=== PATIENT | male | born 1985 | race American Indian/Alaskan Native ===

== ENCOUNTER 2016-11-08 03:06 | Emergency (ER) | payer SELFPAY ==
[2016-11-08] MEDS ORDERED: MOTRIN ONE (03:20)
[2016-11-08] MEDS ORDERED: MOTRIN PO ONE (03:22)
--- NOTE | 2016-11-08 03:50 | XRay Report ---
FINAL REPORT EXAM: XR SHOULDER 2 RT HISTORY: pain.....RIGHT SHOULDER PAIN. TECHNIQUE: 2 views of right shoulder. PRIORS: None. FINDINGS: Joint spaces maintained. No apparent fracture or dislocation. Soft tissues grossly unremarkable. IMPRESSION: 1. No acute osseous abnormality.
--- NOTE | 2016-11-08 07:16 | Emergency Department Report ---
ED Upper Extremity Inj HPI - General Chief Complaint: Shoulder Injury Stated Complaint: R SHOULDER PAIN Time Seen by Provider: 11/08/16 07:07 Source: family Mode of arrival: Ambulatory Limitations: No Limitations - History of Present Illness Initial Comments: This is a 32-year-old male well-nourished with nontoxic or ill in appearance but complains of right shoulder pain status post lifting a dresser this Wednesday. 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 He stated that after lifting a dresser when he came home yesterday feeling of right shoulder pain that describes as aching. Patient denies numbness, tingling, fever, chills, joint swelling, joint redness, weakness, trauma, point tenderness, chest pain, shortness of breath, nausea or vomiting. Patient denies decreased ROM. Patient denies any allergies. No significant past medical history. MD Complaint: Injury to:: right, shoulder -: Gradual, days(s) (3) Other Injuries: none Place: work Severity scale (0 -10): 6 Improves With: other (relieved by NSAIDs) Worsens With: none Associated Symptoms: denies other symptoms. denies: weakness, numbness, neck pain, suspects foreign body, nausea/vomiting, heard/felt popping sensat - Related Data Previous Rx's Medication Instructions Recorded Last Taken Type Ibuprofen [Motrin] 800 mg PO Q8HR PRN #15 tablet 06/20/16 Unknown Rx Ibuprofen [Motrin 600 MG tab] 600 mg PO Q8H PRN #20 tablet 11/08/16 Unknown Rx predniSONE [Deltasone] 20 mg PO BID #10 tab 11/08/16 Unknown Rx Allergies Allergy/AdvReac Type Severity Reaction Status Date / Time No Known Allergies Allergy Verified 06/20/16 06:22 ED Review of Systems ROS: Stated complaint: R SHOULDER PAIN Other details as noted in HPI Constitutional: denies: chills, fever Eyes: denies: eye pain, eye discharge, vision change ENT: denies: ear pain, throat pain Respiratory: denies: cough, shortness of breath, wheezing Cardiovascular: denies: chest pain, palpitations Endocrine: no symptoms reported Gastrointestinal: denies: abdominal pain, nausea, diarrhea Genitourinary: denies: urgency, dysuria Musculoskeletal: denies: back pain, joint swelling, arthralgia Skin: denies: rash, lesions Neurological: denies: headache, weakness, paresthesias Psychiatric: denies: anxiety, depression Hematological/Lymphatic: denies: easy bleeding, easy bruising ED Past Medical Hx - Past Medical History Previous Medical History?: No - Surgical History Past Surgical History?: No - Social History Smoking Status: Never Smoker Substance Use Type: None - Medications Home Medications: Home Medications Medication Instructions Recorded Confirmed Last Taken Type Ibuprofen [Motrin] 800 mg PO Q8HR PRN #15 tablet 06/20/16 Unknown Rx Ibuprofen [Motrin 600 MG tab] 600 mg PO Q8H PRN #20 tablet 11/08/16 Unknown Rx predniSONE [Deltasone] 20 mg PO BID #10 tab 11/08/16 Unknown Rx ED Physical Exam - General Limitations: No Limitations General appearance: alert, in no apparent distress - Head Head exam: Present: atraumatic, normocephalic, normal inspection - Eye Eye exam: Present: normal appearance, PERRL, EOMI. Absent: scleral icterus, conjunctival injection, nystagmus, periorbital swelling, periorbital tenderness Pupils: Present: normal accommodation - ENT ENT exam: Present: normal exam, normal orophraynx, mucous membranes moist, TM's normal bilaterally, normal external ear exam - Neck Neck exam: Present: normal inspection, full ROM. Absent: tenderness, meningismus, lymphadenopathy, thyromegaly - Respiratory Respiratory exam: Present: normal lung sounds bilaterally. Absent: respiratory distress, wheezes, rales, rhonchi, stridor, chest wall tenderness, accessory muscle use, decreased breath sounds, prolonged expiratory - Cardiovascular Cardiovascular Exam: Present: regular rate, normal rhythm, normal heart sounds. Absent: bradycardia, tachycardia, irregular rhythm, systolic murmur, diastolic murmur, rubs, gallop - GI/Abdominal GI/Abdominal exam: Present: soft, normal bowel sounds. Absent: distended, tenderness, guarding, rebound, rigid, diminished bowel sounds - Rectal Rectal exam: Present: deferred - Extremities Exam Extremities exam: Present: normal inspection, full ROM, normal capillary refill. Absent: tenderness, pedal edema, joint swelling, calf tenderness - Expanded Upper Extremity Exam Right General: Present: normal inspection Shoulder Exam: Present: normal inspection, full ROM, other (normal ROM). Absent : tenderness, swelling, abrasion, laceration, ecchymosis, deformity, crepidus, dislocation, erythema, tenderness over AC joint Upper Arm exam: Present: normal inspection, full ROM. Absent: tenderness, swelling, crepidus, erythema Elbow exam: Present: normal inspection, full ROM. Absent: tenderness, swelling , abrasion, laceration, erythema, effusion, pain w/ pronation/supination, tenderness over radial head Forearm Wrist exam: Present: normal inspection, full ROM. Absent: tenderness, swelling, abrasion, laceration, ecchymosis, tenderness over anatomical snuff box , pain with axial thumb loading Hand Wrist exam: Present: normal inspection, full ROM. Absent: tenderness, swelling, abrasion, subungual hematoma Neuro motor exam: Present: wrist extension intact, thumb opposition intact, thumb IP flexion intact, thumb adduction intact, fingers 2-5 abduction intact Neurosensory exam: Present: 2-point discrimination, radial nerve intact, ulnar nerve intact, median nerve intact Vascular: Present: vascular compromise, normal capillary refill - Back Exam Back exam: Present: normal inspection, full ROM. Absent: tenderness, CVA tenderness (R), CVA tenderness (L), muscle spasm, paraspinal tenderness, vertebral tenderness, rash noted - Neurological Exam Neurological exam: Present: alert, oriented X3, CN II-XII intact, normal gait - Psychiatric Psychiatric exam: Present: normal affect, normal mood - Skin Skin exam: Present: warm, dry, intact, normal color. Absent: rash - Other Other exam information: Negative painful arc test. Negative drop arm test. Denies weakness in external rotation. ED Course Vital Signs 11/08/16 11/08/16 03:13 07:22 Temperature 97.9 F Pulse Rate 59 L 68 Respiratory 16 16 Rate Blood Pressure 143/96 Blood Pressure 143/96 144/93 [Left] O2 Sat by Pulse 100 100 Oximetry - Reevaluation(s) Reevaluation #1: 11/08/16 07:19 Patient is laying in bed and talking on the phone with no signs of distress noted. ED Medical Decision Making - Medical Decision Making Ed course: this is a 31-year-old male that presents with shoulder strain, right Patient was examined by me. X-ray has been obtained with negative findings. Negative active painful arch test. Negative drop test. Patient denies any weakness and external rotation of shoulder. Patient doesn't toxic or ill in appearance. no distress noted. Patient received ibuprofen in the ED and patient stated that his pain has subsided minimally. Patient has full range of motion with normal capillary refill. No numbness or tingling. Normal sensation. Patient was instructed to follow-up with orthopedic doctor in 24 hours or symptoms worsen with her balance emergency this was possible. Patient received prednisone and ibuprofen at the time of discharge. A shoulder sling has been applied and patient was instructed not to remove until cleared by orthopedic doctor. at time time of discharge, the patient does not seem toxic or ill in appearance. No acute signs of distress noted. Patient agrees to discharge treatment plan of care. No further questions noted by the patient. Critical care attestation.: If time is entered above; I have spent that time in minutes in the direct care of this critically ill patient, excluding procedure time. ED Disposition Clinical Impression: Right shoulder strain Qualifiers: Encounter type: initial encounter Qualified Code(s): S46.911A - Strain of unspecified muscle, fascia and tendon at shoulder and upper arm level, right arm , initial encounter Disposition: TO HOME OR SELFCARE Is pt being admited?: No Does the pt Need Aspirin: No Condition: Stable Instructions: Ibuprofen (By mouth), Prednisone (By mouth), Rotator Cuff Injury (ED) Additional Instructions: Follow-up with orthopedic doctor in 24 hours for possible further evaluation such as an MRI or if symptoms worsen or unbearable return back to emergency room as soon as possible. Take full course of prednisone as prescribed. Prescriptions: Ibuprofen [Motrin 600 MG tab] 600 mg PO Q8H PRN #20 tablet PRN Reason: Pain predniSONE [Deltasone] 20 mg PO BID #10 tab Referrals: PRIMARY MD JACKELYN [Primary Care Provider] - 3-5 Days [facility] [Outside] - 3-5 Days [facility] [Outside] - 3-5 Days DALI HARTMAN MD [Staff Physician] - 24 Hours Forms: Work/School Release Form(ED)
[2016-11-08 07:23] VITALS: BP 144/93
== END 2016-11-08 07:51 | disposition home or self-care (01) ==
LOC: ED 03:06
DX: S46.911A Strain of unspecified muscle, fascia and tendon at shoulder and upper arm level, right arm, initial encounter (principal); X50.0XXA Overexertion from strenuous movement or load, initial encounter; Y93.89 Activity, other specified; Y99.8 Other external cause status; Y92.89 Other specified places as the place of occurrence of the external cause